=== PATIENT | female | born 1955 | race African-American/Black ===

== ENCOUNTER 2017-07-29 10:10 | Emergency (ER) | payer OTHER ==
[2017-07-29] MEDS ORDERED: DEXAMETHASONE SOD PHOSPHATE 10 MG/1 ML VIAL ONE (10:17)
[2017-07-29 11:01] VITALS: TEMP 98.4; BMI 40.3
[2017-07-29] MEDS ORDERED: RANITIDINE HCL 150 MG TABLET (FP) PO ONE (11:01)
--- NOTE | 2017-07-29 11:07 | PDOC ---
History of Present Illness - General Chief Complaint: Allergic Reaction Stated Complaint: Allergic Reaction Time Seen by Provider: 07/29/17 10:18 History Source: Patient Exam Limitations: No Limitations - History of Present Illness Initial Comments: 07/29/17 11:02 61-year-old female presents to the emergency department with complaints of generalized pruritic rash and hoarse voice after taking a pain medication for her knee that was given to her by a friend. Patient states within 40 minutes started to develop the above and called EMS who had administered Benadryl and Decadron in the field. Patient currently has no complaints including pruritus or difficulty breathing. Timing/Duration: resolved prior to arrival (resolving) Severity: moderate Associated Symptoms: reports: rash Past History - Travel Traveled outside of the country in the last 30 days: No Close contact w/someone who was outside of country & ill: No - Past Medical History Allergies/Adverse Reactions: Allergies Allergy/AdvReac Type Severity Reaction Status Date / Time nabumetone Allergy Severe Verified 07/29/17 10:25 Home Medications: Ambulatory Orders Losartan/Hydrochlorothiazide [Losartan-Hctz 100-25 mg Tab] 1 each PO DAILY 07/29 - Suicide/Smoking/Psychosocial Hx Smoking History: Never smoked Patient Lives Alone: No Lives with/in: spouse/SO Review of Systems - Review of Systems Able to Perform ROS?: No Constitutional: No: Symptoms Reported HEENTM: No: Throat Swelling, Difficulty Swallowing Respiratory: No: Shortness of Breath Cardiac (ROS): No: Symptoms Reported ABD/GI: No: Symptoms Reported Musculoskeletal: No: Symptoms Reported Integumentary: Yes: Pruritus, Rash Neurological: No: Symptoms reported Endocrine: No: Symptoms Reported Hematologic/Lymphatic: No: Symptoms Reported *Physical Exam - Vital Signs Last Vital Signs Temp Pulse Resp BP Pulse Ox 98.4 F 95 H 22 121/74 100 07/29/17 10:26 07/29/17 10:26 07/29/17 10:26 07/29/17 10:07/29/17 10:26 - Physical Exam General Appearance: Yes: Nourished, Appropriately Dressed. No: Apparent Distress HEENT: positive: EOMI, DUC, TMs Normal, Pharynx Normal Neck: positive: Supple Respiratory/Chest: positive: Lungs Clear, Normal Breath Sounds. negative: Respiratory Distress, Accessory Muscle Use, Stridor, Wheezing Cardiovascular: positive: Regular Rhythm, Regular Rate. negative: Murmur Gastrointestinal/Abdominal: positive: Soft. negative: Tenderness Integumentary: positive: Warm, Erythema. negative: Moist Neurologic: positive: Normal Mood/Affect, Motor Strength 5/5 (ambulatory) Medical Decision Making - Medical Decision Making 07/29/17 11:08 Patient here with pruritic rash and change in voice after taking Nabumetone. She was treated with Decadron and Benadryl the field. Patient has no complaints presently will give Zantac 150 by mouth and observe. 07/29/17 12:27 Patient reevaluated has no complaints presently. Patient has no pruritic rash, respiratory difficulty, or complaints of sore throat. Patient will be discharged home with a three-day prescription of prednisone and Benadryl for possible rebound reaction *DC/Admit/Observation/Transfer Diagnosis at time of Disposition: Allergic reaction to drug Qualifiers: Encounter type: initial encounter Qualified Code(s): T78.40XA - Allergy, unspecified, initial encounter - Discharge Dispostion Disposition: HOME Condition at time of disposition: Improved - Patient Instructions Printed Discharge Instructions: DI for Adverse Drug Reaction -- Allergic Additional Instructions: Please take benadryl as needed for itching or rash. Take prednisone starting tomorrow x 3 days. Return to the ED if symptoms return despite above recommendations
[2017-07-29] MEDS ORDERED: RANITIDINE HCL 150 MG TABLET (FP) ONE (11:35)
[2017-07-29 12:41] VITALS: BP 120/71; PULSE 84
== END 2017-07-29 12:41 | disposition home or self-care (01) ==
LOC: JER 10:10
DX: T78.40XA Allergy, unspecified, initial encounter (principal)
CPT/HCPCS: 99282-25

== ENCOUNTER 2018-03-30 15:44 | Emergency (ER) | payer OTHER ==
--- NOTE | 2018-03-30 15:55 | PDOC ---
Rapid Medical Evaluation Time Seen by Provider: 03/30/18 15:51 Medical Evaluation: Allergies Allergy/AdvReac Type Severity Reaction Status Date / Time nabumetone Allergy Severe Swelling Verified 03/30/18 15:51 03/30/18 15:52 I have performed a brief in-person evaluation of the patient. The patient presents with a chief complaint of : productive coughing with yellowish thick mucus and wheezing x 2 weeks intermittently. States no fever or chills Pertinent physical exam findings. audible nasal congestion + expiratory wheezing I have ordered the following nebulizer, chest xray This patient will proceed to the ED for further evaluation.
[2018-03-30 15:56] VITALS: BP 177/85; PULSE 92; TEMP 99.6; BMI 53.6
[2018-03-30] MEDS ORDERED: ALBUTEROL SO4 2.5/IPRATROPIUM 0.5 INH SOL 3 ML VIAL.NEB. NEB ONE ×2 (15:58→16:11)
--- NOTE | 2018-03-30 16:18 | PDOC ---
History of Present Illness - General Chief Complaint: Wheezing Stated Complaint: COUGH, WHEEZING Time Seen by Provider: 03/30/18 15:51 History Source: Patient Exam Limitations: No Limitations - History of Present Illness Initial Comments: 03/30/18 16:15 62-year-old woman past medical history of hypertension who presents emergency Department with 2 weeks of productive cough and now with 2 days of expiratory wheezes. 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 Patient denies any fevers, chills, chest pain, shortness of breath. Past History - Past Medical History Allergies/Adverse Reactions: Allergies Allergy/AdvReac Type Severity Reaction Status Date / Time nabumetone Allergy Severe Swelling Verified 03/30/18 15:51 Home Medications: Ambulatory Orders Losartan/Hydrochlorothiazide [Losartan-Hctz 100-25 mg Tab] 1 each PO DAILY 07/29 Albuterol Sulfate Inhaler - [Ventolin HFA Inhaler -] 2 inh PO Q4H #1 inh - Suicide/Smoking/Psychosocial Hx Smoking History: Current every day smoker Number of Cigarettes Smoked Daily: 3 Information on smoking cessation initiated: No Hx Alcohol Use: No Drug/Substance Use Hx: No Review of Systems - Review of Systems Able to Perform ROS?: Yes Is the patient limited [place] proficient: No Constitutional: No: Symptoms Reported HEENTM: No: Symptoms Reported Respiratory: Yes: See HPI Cardiac (ROS): No: Symptoms Reported ABD/GI: No: Symptoms Reported : No: Symptoms Reported Musculoskeletal: No: Symptoms Reported Integumentary: No: Symptoms Reported Neurological: No: Symptoms reported Endocrine: No: Symptoms Reported Hematologic/Lymphatic: No: Symptoms Reported *Physical Exam - Vital Signs Last Vital Signs Temp Pulse Resp BP Pulse Ox 99.6 F 92 H 24 177/85 97 03/30/18 15:51 03/30/18 15:51 03/30/18 15:51 03/30/18 15:51 03/30/18 15:51 - Physical Exam General Appearance: Yes: Appropriately Dressed. No: Apparent Distress HEENT: positive: Normal ENT Inspection Neck: positive: Trachea midline, Supple. negative: Stridor Respiratory/Chest: positive: Lungs Clear, Normal Breath Sounds. negative: Respiratory Distress, Accessory Muscle Use Cardiovascular: positive: Regular Rhythm, Regular Rate. negative: Edema, Murmur ED Treatment Course - Medications Given in the ED: ED Medications Discontinued Medications Generic Name Dose Route Start Last Admin Trade Name Zane PRN Reason Stop Dose Admin Albuterol/Ipratropium 1 amp 03/30/18 15:58 03/30/18 16:12 Duoneb - NEB 03/30/18 15:59 1 amp ONCE ONE Administration Medical Decision Making - Medical Decision Making 03/30/18 16:17 A/P: 62-year-old woman with 2 weeks of moist productive cough now with wheezes Respirations even nonlabored Speaking full sentences Lungs clear to auscultation bilaterally Moist productive cough present during assessment Chest x-ray, nebulizers, reassess 03/30/18 16:57 Wet read of x-ray by me: Angles are clear. Cardiac silhouette is within normal limits. Mild scoliosis noted. No focal infiltrates or consolidations noted. Visualized airways are clear. Visualized osseous structures are intact. Patient feels better after nebulizer treatment. Repeat lung exam reveals clear lungs. I will discharge the patient home with symptomatic relief of bronchitis. *DC/Admit/Observation/Transfer Diagnosis at time of Disposition: Bronchitis - Discharge Dispostion Disposition: HOME Condition at time of disposition: Stable Decision to Admit order: No - Prescriptions Prescriptions: Albuterol Sulfate Inhaler - [Ventolin HFA Inhaler -] 2 inh PO Q4H #1 inh - Referrals - Patient Instructions Printed Discharge Instructions: DI for Acute Bronchitis Additional Instructions: Rest, drink lots of fluids: Teas, water, soups, Pedialyte Saltwater gargles Steamy showers/seem to face break up mucus Avoid contact with others until fevers and cough resolved Lots of handwashing and good hygiene Continue [id number] medications for symptomatic relief- Mucinex, cough syrup Tylenol or Motrin for fever and pain Followup with private physician in one to 2 days as needed Return to emergency department for worsened symptoms, fevers, dehydration - Post Discharge Activity Forms/Work/School Notes: Back to Work
== END 2018-03-30 17:09 | disposition home or self-care (01) ==
LOC: JERFT 15:44
PROC: 3E0F7GC Introduction of Other Therapeutic Substance into Respiratory Tract, Via Natural or Artificial Opening (ICD-10-PCS; principal; 2018-03-30)
DX: J40 Bronchitis, not specified as acute or chronic (principal)
CPT/HCPCS: 71045-TC-FY; 99281-25; J7620